=== PATIENT | male | born 1965 | race Caucasian/White ===

== ENCOUNTER 2019-01-26 07:50 | Inpatient (IN) | payer OTHER ==
[~2019-01-26] VITALS: Ht 170.2 cm; Wt 112.4 kg
[2019-01-26] MEDS ORDERED: LISINOPRIL10 MG PO (07:54)
[2019-01-26 08:08] LABS: ABSOLUTE EOSINOPHILS 0.2 thou/uL (0.0-0.7); ABSOLUTE LYMPHOCYTES 1.8 thou/uL (0.8-5.3); ABSOLUTE MONOCYTES 0.6 thou/uL (0.0-1.2); ABSOLUTE NEUTROPHILS 3.6 thou/uL (1.6-8.1); BASOPHILS 0.6 %; EOSINOPHILS 2.9 %; HEMOGLOBIN 15.2 gm/dL (14.0-18.0); LYMPHOCYTES 29.1 %; MCH 29.3 pg (26.0-34.0); MCHC 33.7 g/dL (28.0-37.0); MCV 86.9 fL (80.0-100.0); MONOCYTES 9.6 %; MPV 9.2 fl. (7.2-11.1); NUCLEATED RBCS 0 /100WBC; PLATELET COUNT* 203 thou/uL (150-400); POLYS 57.8 %; RBC 5.18 mil/uL (4.50-6.00); RDW-CV 15.8 % (10.5-14.5); WBC 6.1 thou/uL (4.0-11.0)
[2019-01-26 08:21] LABS: INR 0.9; PROTIME 9.7 Seconds (9.20-11.50)
[2019-01-26 08:40] LABS: ANION GAP 9 mmol/L (7-16); BUN 13 mg/dL (7-18); CALCIUM 9.3 mg/dL (8.5-10.1); CHLORIDE 102 mmol/L (98-107); CO2 29 mmol/L (21-32); CREATININE 0.9 mg/dL (0.6-1.3); GLUCOSE 131 mg/dL (70-99); POTASSIUM 4.2 mmol/L (3.5-5.1); SODIUM 140 mmol/L (136-145)
[2019-01-26 08:50] LABS: ALBUMIN 3.8 g/dL (3.4-5.0); ALKALINE PHOSPHATASE 88 U/L (46-116); LIPASE 115 U/L (73-393); NT-PRO BRAIN NAT PEPTIDE 40 pg/mL (<300); SGOT 27 U/L (15-37); SGPT 52 U/L (30-65); TOTAL BILIRUBIN 0.5 mg/dL (<0.1-1.0); TOTAL PROTEIN 8.1 g/dL (6.4-8.2); TROPONIN-I LEVEL <0.06 ng/mL (<0.06)
--- NOTE | 2019-01-26 09:37 | NUR ---
PT GIVEN A LIGHT BREAKFAST TRAY WITH NO CAFFEINE PER DR. KNUTSON REQUEST.
[2019-01-26 09:45] LABS: CHOLESTEROL 183 mg/dL (<200); HDL CHOLESTEROL 41 mg/dL (>40); LDL CHOLESTEROL 121 mg/dL (<100); TC:HDL 4.5 Ratio (Not establshd); TRIGLYCERIDE 105 mg/dL (<150); VLDL 21 mg/dL (<40)
[2019-01-26 09:46] LABS: SERUM ASSESSMENT Clear
--- NOTE | 2019-01-26 10:41 | NUR ---
PT HAS STRESS TEST SCHEDULED FOR 1600 TODAY. PT TO BE NPO AFTER [address] KNUTSON ORDERS.
--- NOTE | 2019-01-26 11:05 | EKG ---
[place] [address] ELECTROCARDIOGRAM REPORT Name: JANINA AGRAWAL [id number] Admission: 01/26/19 Attend Phys: Discharge: Date of : 61 Report #: [id number] THIS REPORT FOR: //name// [facility] [place] ED Test Date: 2019-01-26 Test Time: 07:54:27 Pat Name: JANINA AGRAWAL Department: Room: Gender: Yard Coordinator: : 1965 Requested By: Yarelis Easley Order Number: [id number] MD: Rashid Matthew Measurements Intervals [facility] Rate: 90 P: 3 [place]: 166 QRS: -18 QRSD: 94 T: 12 QT: 403 QTc: 493 Interpretive Statements Sinus rhythm Consider left atrial enlargement Borderline left axis deviation Borderline prolonged QT interval No previous ECG available for comparison Electronically Signed On 01-26-2019 11:05:46 CDT by Rashid Matthew [email or web address] <ELECTRONICALLY SIGNED> By: Rashid Matthew MD, [facility] 01/26/19 1105 [id number] Rashid Matthew MD, FACC /EPI
--- NOTE | 2019-01-26 11:17 | NUR ---
DUE TO THE PATIENT HAVING A STRESS TEST SCHEDULED FOR 1600 AND AN ORDER FOR NPO AT 1200, A BOXED LUNCH HAS BEEN ORDERED FOR THE PATIENT. DIETARY STATES THEY WILL BRING ONE DOWN NOW.
[2019-01-26 12:00] VITALS: BP 128/89
[2019-01-26 15:45] VITALS: BP 128/83
--- NOTE | 2019-01-26 16:10 | NUR ---
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
--- NOTE | 2019-01-26 17:02 | NUR ---
PT IS GOING TO BE DISCHARGED FROM EMERGENCY DEPARTMENT INSTEAD OF BEING ADMITTED TO ROOM #205. INPATIENT NURSE COMING TO DISCHARGE PATIENT AT THIS TIME.
[2019-01-26 18:28] VITALS: BP 136/97
--- NOTE | 2019-01-26 18:29 | NUR ---
PT IS NO LONGER BEING DISCHARGED FROM EMERGENCY DEPARTMENT. PT BEING ADMITTED TO ROOM #205 ORIGINALLY PLANNED. RAFIA GASTELUM MADE AWARE.
[2019-01-26 18:40] VITALS: BP 156/92
--- NOTE | 2019-01-26 18:56 | NUR ---
RECEIVED REPORT FROM KIERSTEN IN ED AND ASSUMED CARE OF PT @ 3530.PT IS A/O X4,VSS,TRACING SR ON THE MONITOR.IV PATENT AND SALINE LOCKED.NO C/O PAIN.PT IS CALM AND COOPERATIVE.HOURLY ROUNDING COMPELTED FOR PT SAFETY.PT LEFT RESTING IN BED WITH CALL LIGHT WITHIN REACH.WILL CONTINUE TO MONTIOR FOR DURATION OF SHIFT.
[2019-01-26 19:50] VITALS: BP 132/85
[2019-01-27] VITALS: BP 131/51
[2019-01-27 04:00] VITALS: BP 128/55
[2019-01-27 04:13] LABS: ABSOLUTE EOSINOPHILS 0.2 thou/uL (0.0-0.7); ABSOLUTE LYMPHOCYTES 1.6 thou/uL (0.8-5.3); ABSOLUTE MONOCYTES 0.7 thou/uL (0.0-1.2); ABSOLUTE NEUTROPHILS 3.9 thou/uL (1.6-8.1); BASOPHILS 0.5 %; EOSINOPHILS 2.9 %; HEMATOCRIT 40.9 % (42.0-52.0); MCH 28.4 pg (26.0-34.0); MCHC 32.3 g/dL (28.0-37.0); MONOCYTES 10.6 %; MPV 9.3 fl. (7.2-11.1); NUCLEATED RBCS 0 /100WBC; PLATELET COUNT* 188 thou/uL (150-400); RBC 4.65 mil/uL (4.50-6.00); RDW-CV 15.5 % (10.5-14.5); WBC 6.4 thou/uL (4.0-11.0)
[2019-01-27 04:29] LABS: HEMOGLOBIN 13.2 gm/dL (14.0-18.0)
[2019-01-27 04:38] LABS: ALBUMIN 3.1 g/dL (3.4-5.0); CALCIUM 9.1 mg/dL (8.5-10.1); CREATININE 0.9 mg/dL (0.6-1.3); POTASSIUM 4.2 mmol/L (3.5-5.1); TOTAL BILIRUBIN 0.4 mg/dL (<0.1-1.0); TOTAL PROTEIN 6.8 g/dL (6.4-8.2)
--- NOTE | 2019-01-27 06:50 | NUR ---
PT CARE ASSUMED AT 1930. SAT MAINTAINED IN RA. ALERT AND ORIENTED X4. CALL LIGHT WITHIN REACH AND BED IN LOW POSITION. DENIES PAIN AND SOB. HOURLY ROUNDING DONE FOR PT SAFETY.
[2019-01-27 08:00] VITALS: BP 143/89
--- NOTE | 2019-01-27 12:02 | NUR ---
Pt is A&O. Resides at home. Active and independent. No DME. No hx HH or SNF. [facility]. Following.
[2019-01-27 15:56] VITALS: BP 159/92
--- NOTE | 2019-01-27 16:17 | CARDNUC ---
[place] [address] CARDIAC NUCLEAR IMAGING REPORT Name: JANINA AGRAWAL Room: [address] [facility]#: [id number] Admission: 01/27/19 Attend Phys: Guillaume Padilla, Discharge: Date of : 61 Date of Service: 01/27/19 1617 Report #: [id number] THIS REPORT FOR: //name// APPROVED REPORT Imaging Protocol: Stress Tc-99m/ 1 day Study performed: 01/27/2019 12:42:00 Indication: Chest pain Patient Location: In-Patient Room #: [facility] Stress Tech: Maren Hook Stress Nurse: Erica Abel RN NM Tech:DAPHNE Carreno Ht: 5 ft 7 in Wt: 245 lbs BSA: 2.20 m2 HR: 70 bpm BP: 131/94 mmHg BMI: 38.36 Rhythm: NSR Medical History Medical History: Hyperlipidemia, HTN Medications: none Cardiac Risk Factors: Hyperlipidemia, HTN Pharmacologic Stress Pharmacologic stress test was performed by injecting Regadenoson 0.4 mg IV push over 10-15 seconds immediately followed by the intravenous injection of 37.1 mCi of Tc-99m Sestamibi. Time of stress injection: 1424 Date: 01/27/2019 Administration Route: IV Gated Stress SPECT was performed 40 minutes after stress injection. The images were gated to evaluate regional wall motion and calculate left ventricular ejection fraction. Prone imaging was performed. Stress Test Details Stress Test: Pharmacologic stress testing performed using 0.4 mg of regadenoson per 5 mL given IV over 10 seconds. Reason for pharmacologic stress test: physical limitation. HR Max Heart Rate (APMHR): 165 bpm Resting HR: 70 bpm Target HR (85% APMHR): 140 bpm Max HR Achieved: 105 [place] [address] CARDIAC NUCLEAR IMAGING REPORT Name: JANINA AGRAWAL Room: [address]#: [id number] Admission: 01/27/19 Attend Phys: Guillaume Padilla, Discharge: Date of : 61 Date of Service: 01/27/19 1617 Report #: [id number] % of APMHR: 63 Recovery HR: 86 bpm HR response to stress: Normal HR response to stress BP Resting BP: 131/94 mmHg Max BP: 165/101 mmHg Recovery BP: 123/85 mmHg BP response to stress: Normal blood pressure response to stress. ECG Resting ECG: nsr Stress ECG: nsr ST Change: none Arrhythmia: none Recovery ECG: nsr Recovery ST Change: none Recovery Arrhythmia: none Clinical Reason for Termination: Completed protocol Stress Symptoms: None Stress ECG Conclusion negative ecg portion Study Quality Study: Good Artifact: Mild Increased GI uptake Lung Uptake: Normal Study Data Post stress, the left ventricular ejection was 63%.. Perfusion STRESS SPECT images show a small mild intensity inferior defect. There is uniform uptake of tracer in all other segments. The prone set shows normalization of the inferior defect indicating it is likely artifact. No reversible defects are seen. Images were reviewed using [employer]. Wall Motion normal [place] [address] CARDIAC NUCLEAR IMAGING REPORT Name: JANINA AGRAWAL Room: [address] [facility]#: [id number] Admission: 01/27/19 Attend Phys: Guillaume Padilla, Discharge: Date of : 61 Date of Service: 01/27/191616 Report #: [id number] ECG Findings: negative for ischemia Clinical Findings: negative for ischemia Nuclear Findings: negative for ischemia Exercise Capacity: not assessed Left Ventricular Function: normal Risk Study: low Negative perfusion nuclear stress test for ischemia/infarct. <Conclusion> negative ecg portion <ELECTRONICALLY SIGNED> By: Jc Hansen MD, FACC 01/27/191616 16 16 Jc Hansen MD, FACC /INF
[2019-01-27 19:50] VITALS: BP 131/84
[2019-01-28] VITALS: BP 136/98
[2019-01-28 04:00] VITALS: BP 142/94
--- NOTE | 2019-01-28 05:13 | NUR ---
PT CARE ASSUMED AT 1930. SAT MAINTAINED IN RA. ALERT AND ORIENTED X4. CALL LIHT WITHIN REACH AND BED IN LOW POSITION. DENIES PAIN AND SOB. HOURLY ROUNDING DONE FOR PT SAFETY.
[2019-01-28 07:30] VITALS: BP 128/79
[2019-01-28 11:03] VITALS: BP 128/79
--- NOTE | 2019-01-31 14:49 | TST ---
[place] [address] TREADMILL STRESS TEST Name: JANINA AGRAWAL Room: [address]#: [id number] Admission: 01/27/19 Attend Phys: Guillaume Padilla, Discharge: 01/28/19 Date of : 61 Date of Service: 01/26/19 1648 Report #: [id number] THIS REPORT FOR: //name// CC: Guillaume Ferrell DATE OF SERVICE: 01/26/2019 EXERCISE STRESS TEST ORDERING PHYSICIAN: Dr. Yarelis Easley. PCP: Dr. Minesh Ferrell, in case of chest pain. CARDIAC HISTORY: Negative. RISK FACTORS: Include age, hypertension. MEDICATIONS: Include hydralazine. The patient was only able to exercise for 4 minutes on a standard Adryan protocol, achieved 6 METs and 98% age-predicted maximum heart rate. Test terminated due to shortness of breath. Resting blood pressure 133/89, heart rate 71, peak blood pressure 209/103 with heart rate 162, recovery blood pressure 168/89, heart rate 98. Resting ECG is normal. During exercise, there were no ST segment changes, but the patient had frequent PVCs and occasional couplets. They resolved in recovery. IMPRESSION: 1. Clinical portion negative. 2. Electrocardiac portion negative for ischemia, although PVCs were noted. 3. Exercise capacity is poor. This Adryan protocol stress test is largely nondiagnostic because the patient could not achieve an adequate exercise level. However, the level of exercise achieved there were no dynamic ST segment abnormalities. <ELECTRONICALLY SIGNED> By: Jc Hansen MD, FACC 01/31/19 1449 1648 [id number] Jc Hansen MD, FACC /nt
== END 2019-01-28 11:54 | disposition home or self-care (01) | DRG 313 ==
LOC: M.ERS 07:50 → M.TBA-ER 11:43 → M.2W 11:43 → M.TBA-ER 11:43 → M.2W 18:45
PROVIDERS: Personal Emergency Response Attendant; ADMIT Internal Medicine
DX: R07.89 Other chest pain (principal); I10 Essential (primary) hypertension; E78.5 Hyperlipidemia, unspecified; Z79.899 Other long term (current) drug therapy